=== PATIENT | male | born 1945 | race Caucasian/White ===

== ENCOUNTER 2018-06-07 10:44 | Outpatient (CLI) | payer MEDICARE, SELFPAY ==
[2018-06-10 10:02] LABS: PSA, Diagnostic 13.4 ng/ml (0-6.5)
== END 2018-06-07 11:04 ==
PROVIDERS: PCP Family Medicine; Visit Provider Urology
DX: R97.20 Elevated prostate specific antigen [PSA] (principal)
CPT/HCPCS: 84153

== ENCOUNTER → 2018-06-24 08:50 | Outpatient (BNVA) | payer MEDICARE, SELFPAY | PROVIDERS: PCP Family Medicine; Visit Provider Urology | DX: R97.20 Elevated prostate specific antigen [PSA] (principal); N40.0 Benign prostatic hyperplasia without lower urinary tract symptoms | CPT/HCPCS: 99213 ==

== ENCOUNTER 2018-09-30 00:55 | Outpatient (CLI) | payer MEDICARE, SELFPAY ==
--- NOTE | 2018-09-30 10:33 | DI.CTLCSR_ITS ---
SYMPTOMS/DIAGNOSIS: SMOKER, F17.200, F17.210 CT SCAN OF THE CHEST: CT scan of the chest was performed according to the lung cancer screening protocol. There are no priors for comparison. There is calcification of the thoracic aorta but no aneurysmal dilatation is seen. The heart size is within normal limits. No significant pericardial effusion is present. Calcification is seen in the coronary arteries. No significant thoracic adenopathy is seen on this noncontrast examination. No pleural effusion or pneumothorax is identified. Paraseptal emphysematous changes are seen in the lungs. No noncalcified pulmonary nodules are identified. No focal consolidating infiltrates are seen. The tracheobronchial tree is unremarkable. Degenerative changes are present in the spine. IMPRESSION: No pulmonary nodules. Lung-RAD Category: Lung RADS Category 1- Negative
== END 2018-09-30 01:15 ==
PROVIDERS: PCP Family Medicine; Visit Provider Family Medicine
DX: Z12.2 Encounter for screening for malignant neoplasm of respiratory organs (principal); F17.210 Nicotine dependence, cigarettes, uncomplicated
CPT/HCPCS: G0297

== ENCOUNTER 2018-12-12 01:22 | Outpatient (CLI) | payer MEDICARE, SELFPAY ==
[2018-12-13 10:39] LABS: PSA, Diagnostic 22.2 ng/ml (0-6.5)
== END 2018-12-12 01:42 ==
PROVIDERS: PCP Family Medicine; Visit Provider Urology
DX: R97.20 Elevated prostate specific antigen [PSA] (principal)
CPT/HCPCS: 36415; 84153

== ENCOUNTER → 2018-12-24 08:52 | Outpatient (BNVA) | payer MEDICARE, SELFPAY | PROVIDERS: PCP Family Medicine; Visit Provider Urology | DX: R97.20 Elevated prostate specific antigen [PSA] (principal); R19.4 Change in bowel habit | CPT/HCPCS: 99213 ==

== ENCOUNTER 2019-06-16 01:29 | Outpatient (CLI) | payer MEDICARE, SELFPAY ==
[2019-06-17 09:54] LABS: PSA, Diagnostic 18.9 ng/mL (0.0-6.5)
== END 2019-06-16 01:49 ==
PROVIDERS: PCP Family Medicine; Visit Provider Urology
DX: R97.20 Elevated prostate specific antigen [PSA] (principal)
CPT/HCPCS: 36415; 84153

== ENCOUNTER → 2019-06-27 08:57 | Outpatient (BNVA) | payer MEDICARE, SELFPAY | PROVIDERS: PCP Family Medicine; Referring Provider Family Medicine; Visit Provider Urology | DX: K64.9 Unspecified hemorrhoids (principal); R97.20 Elevated prostate specific antigen [PSA] | CPT/HCPCS: 99213 ==

== ENCOUNTER 2019-12-29 02:20 | Outpatient (CLI) | payer MEDICARE, SELFPAY ==
[2019-12-30 09:12] LABS: PSA, Diagnostic 22.8 ng/mL (0.0-6.5)
== END 2019-12-29 02:40 ==
PROVIDERS: PCP Family Medicine; Referring Provider Family Medicine; Visit Provider Urology
DX: R97.20 Elevated prostate specific antigen [PSA] (principal)
CPT/HCPCS: 36415; 84153

== ENCOUNTER → 2020-01-06 10:33 | Outpatient (BNVA) | payer MEDICARE, SELFPAY | PROVIDERS: PCP Family Medicine; Referring Provider Family Medicine; Visit Provider Urology | DX: R97.20 Elevated prostate specific antigen [PSA] (principal) | CPT/HCPCS: 99213 ==

== ENCOUNTER 2020-09-15 04:31 | Outpatient (CLI) | payer MEDICARE, SELFPAY ==
[2020-09-15 18:35] LABS: PSA, Diagnostic 31.9 ng/mL (0.0-6.5)
== END 2020-09-15 04:32 | disposition home or self-care (01) ==
PROVIDERS: PCP Family Medicine; Visit Provider Urology
DX: R97.20 Elevated prostate specific antigen [PSA] (principal)
CPT/HCPCS: 36415; 84153

== ENCOUNTER → 2020-09-23 08:53 | Outpatient (BNVA) | payer MEDICARE, SELFPAY | PROVIDERS: PCP Family Medicine; Visit Provider Nurse Practitioner Gerontology | DX: R97.20 Elevated prostate specific antigen [PSA] (principal); N40.0 Benign prostatic hyperplasia without lower urinary tract symptoms | CPT/HCPCS: 99213 ==

== ENCOUNTER 2020-10-21 16:55 | Outpatient (REF) | payer MEDICARE, SELFPAY ==
[2020-10-21 19:50] LABS: ALT 28 U/L (16-63); AST 21 U/L (15-37); Albumin 4.2 g/dL (3.4-5.0); Alkaline Phosphatase 71 U/L (46-116); BUN 28 mg/dL (7-18); Bilirubin, Total 0.5 mg/dL (0.2-1.0); CREATININE 1.1 mg/dL (0.70-1.30); Calcium 10.2 mg/dL (8.5-10.1); Chloride 99 mmol/L (98-107); Glucose 85 mg/dL (74-106); Potassium 3.7 mmol/L (3.5-5.1); Sodium 136 mmol/L (136-145); Total Protein 7.7 g/dL (6.4-8.2)
== END 2020-10-21 16:56 | disposition home or self-care (01) ==
LOC: NCHCN 16:55
PROVIDERS: PCP Family Medicine; Visit Provider Family Medicine
DX: I10 Essential (primary) hypertension (principal)
CPT/HCPCS: 80053

== ENCOUNTER 2021-03-18 03:21 | Outpatient (CLI) | payer MEDICARE, SELFPAY ==
[2021-03-18 22:21] LABS: PSA, Diagnostic 34.4 ng/mL (0.0-6.5)
== END 2021-03-18 03:22 | disposition home or self-care (01) ==
LOC: LBO 03:21
PROVIDERS: PCP Family Medicine; Visit Provider Nurse Practitioner Gerontology
DX: R97.20 Elevated prostate specific antigen [PSA] (principal)
CPT/HCPCS: 36415; 84153

== ENCOUNTER → 2021-03-24 09:55 | Outpatient (BNVA) | payer MEDICARE, SELFPAY | PROVIDERS: PCP Family Medicine; Referring Provider Family Medicine; Visit Provider Nurse Practitioner Gerontology | DX: R39.89 Other symptoms and signs involving the genitourinary system (principal); R97.20 Elevated prostate specific antigen [PSA] | CPT/HCPCS: 99213 ==

== ENCOUNTER 2021-09-14 02:50 | Outpatient (CLI) | payer MEDICARE, SELFPAY ==
[2021-09-14 22:54] LABS: PSA, Diagnostic 36.2 ng/mL (0.0-6.5)
== END 2021-09-14 02:51 | disposition home or self-care (01) ==
LOC: LBO 02:50
PROVIDERS: PCP Family Medicine; Visit Provider Nurse Practitioner Gerontology
DX: R97.20 Elevated prostate specific antigen [PSA] (principal)
CPT/HCPCS: 36415; 84153

== ENCOUNTER 2021-09-23 03:02 | Outpatient (CLI) | payer MEDICARE, SELFPAY ==
[2021-09-23 17:36] LABS: CREATININE 1.1 mg/dL (0.70-1.30)
== END 2021-09-23 03:03 | disposition home or self-care (01) ==
PROVIDERS: PCP Family Medicine; Visit Provider Nurse Practitioner Gerontology
DX: R97.20 Elevated prostate specific antigen [PSA] (principal)
CPT/HCPCS: 36415; 82565

== ENCOUNTER → 2021-10-04 02:27 | Outpatient (CLI) | payer MEDICARE, SELFPAY ==
--- NOTE | 2021-10-04 15:15 | DI.CTLCSR_ITS ---
Exam(s) CT CHEST LUNG CANCER SCREEN EXAM: CT CHEST LUNG CANCER SCREEN CLINICAL HISTORY: CIGARETTE SMOKER, F17.210 TECHNIQUE: Imaging Protocol: Axial computed tomography images with coronal and sagittal reformatted images were created and reviewed COMPARISON: CT CT CHEST LUNG CANCER SCREEN from 09/30/2018 FINDINGS: Tracheobronchial tree: Patent where visualized. Pulmonary parenchyma: No consolidation or dominant measurable mass. Emphysematous changes are present in the lungs. Mild pulmonary fibrosis is present. Lung Nodules: None. Mediastinum and Cait: No dominant adenopathy or fluid collection. The esophagus is unremarkable. Thyroid gland: Unremarkable. Lymph nodes: Unremarkable. Pleura: No effusion or pneumothorax. Heart: The heart is not dilated. Coronary artery calcifications are present. No pericardial effusion . Aorta: Thoracic aorta non-dilated.Atherosclerosis. Upper abdomen: Unremarkable. Soft Tissues: Unremarkable. Bones: Within normal limits. IMPRESSION: No pulmonary nodules. Lung RADS Cat 1 - Negative: No nodules and definitely benign nodules Lung-RADS 1.0 CATEGORIES: Category 0 - Prior chest CT exam(s) being located for comparison. Category 1 - Annual screening in 12 months. No nodules or definitely benign nodules. Category 2 - Annual screening in 12 months. Benign appearance. Nodules with low likelihood of becomin g active cancer. Category 3 - 6-month follow-up. Probably benign. Short-term follow-up suggested. Nodules with low lik elihood of becoming active cancer. Category 4A - 3-month follow-up and CT/PET if >8 mm in size. Suspicious finding. Findings which requi re additional testing. Category 4B - Findings which require additional testing and tissue sampling. Suspicious finding. Category 4X - Category 3 or 4 nodules with additional features or imaging findings that increases the suspicion of malignancy. Modifier S- Potentially clinically significant finding. (Non lung cancer) RADIATION DOSE DELIVERED: 77.01mGy.cm Total DLP !Error CTDIvol 77.01mGy.cm Total DLP 1.84mGy CTDIvol DATA REPOSITORY: All CT scans at this facility are submitted to the National Radiology Data Registry (NRDR) Dose Index Registry (DIR) with the [employer] (ACR). RADIATION OPTIMIZATION: All CT scans at this facility use at least one of these dose optimization te chniques: automated exposure control; mA and/or kV adjustment per patient size (includes targeted exa ms where dose is matched to clinical indication); or iterative reconstruction.
== END ==
PROVIDERS: PCP Family Medicine; Visit Provider Nurse Practitioner Family
DX: Z12.2 Encounter for screening for malignant neoplasm of respiratory organs (principal); F17.210 Nicotine dependence, cigarettes, uncomplicated; J43.8 Other emphysema; J84.10 Pulmonary fibrosis, unspecified
CPT/HCPCS: 71271

== ENCOUNTER → 2021-11-08 08:47 | Outpatient (BNVA) | payer MEDICARE, SELFPAY | PROVIDERS: PCP Family Medicine; Referring Provider Family Medicine; Visit Provider Nurse Practitioner Gerontology | DX: R97.20 Elevated prostate specific antigen [PSA] (principal); N40.0 Benign prostatic hyperplasia without lower urinary tract symptoms | CPT/HCPCS: 99214 ==

== ENCOUNTER 2022-03-07 03:50 | Outpatient (CLI) | payer MEDICARE, SELFPAY ==
[2022-03-07 18:14] LABS: PSA, Diagnostic 46.9 ng/mL (<=6.5)
== END 2022-03-07 03:51 | disposition home or self-care (01) ==
LOC: LBO 03:50
PROVIDERS: PCP Family Medicine; Visit Provider Nurse Practitioner Gerontology
DX: R97.20 Elevated prostate specific antigen [PSA] (principal)
CPT/HCPCS: 36415; 84153

== ENCOUNTER → 2022-03-14 09:56 | Outpatient (BNVA) | payer MEDICARE, SELFPAY | PROVIDERS: PCP Family Medicine; Referring Provider Family Medicine; Visit Provider Nurse Practitioner Gerontology | DX: R97.20 Elevated prostate specific antigen [PSA] (principal) | CPT/HCPCS: 99214 ==

== ENCOUNTER → 2022-05-31 02:56 | Outpatient (CLI) | payer MEDICARE, SELFPAY ==
--- NOTE | 2022-05-31 | DI.DEXA_ITS ---
Exam(s) XR DEXA BONE DENSITY W/WO MERLE EXAM: XR DEXA BONE DENSITY W/WO MERLE CLINICAL HISTORY: DISORDER BONE DENSITY AND STRUCTURE, M85.88 TECHNIQUE: COMPARISON: CT CT CHEST LUNG CANCER SCREEN from 10/04/2021 FINDINGS: DEXA scan was performed according to the usual protocol. Please see the accompanying data sheets. Findings for left hip scanning are T-score -1.6 with left femoral neck T-score -2.5. Prior examinati on of October 2016 showed left hip T-score -1.5. Findings for lumbar spine scanning are T-score 1.2, prior examination of 2016 showed lumbar T-score - 1.5. Right forearm scanning shows T-score -2.8, prior examination of 2016 showed T-score -2.2. IMPRESSION: Measurements are consistent with osteoporosis according to the WHO criteria. There may be minimal an terior wedging of multiple thoracic vertebral bodies probably unchanged from prior CT examination of September 2021. RADIATION DOSE DELIVERED: Total DLP
== END ==
PROVIDERS: PCP Family Medicine; Visit Provider Family Medicine
DX: M81.0 Age-related osteoporosis without current pathological fracture (principal); M85.88 Other specified disorders of bone density and structure, other site
CPT/HCPCS: 77080

== ENCOUNTER → 2022-07-03 12:51 | Outpatient (BNVA) | payer MEDICARE, SELFPAY | PROVIDERS: PCP Family Medicine; Referring Provider Family Medicine; Visit Provider Internal Medicine Cardiovascular Disease | DX: I10 Essential (primary) hypertension (principal); F17.210 Nicotine dependence, cigarettes, uncomplicated | CPT/HCPCS: 93005; 99202; 99214 ==

== ENCOUNTER 2022-07-03 12:52 | Outpatient (CLI) | payer MEDICARE, SELFPAY ==
--- NOTE | 2022-07-03 12:45 | RT.EKG_ITS ---
APPROVED REPORT Exam: Resting ECG Reason for Exam: cardiac evaluation Patient Location: O HR:67 bpm ECG Measurements Heart Rate 67 AXIS SC 173 P 23 QRSd 107 QRS -32 QT 390 T 104 QTc 412 Conclusion Sinus rhythm...normal P axis, V-rate 50- 99 LVH with secondary repolarization abnormality...multi-LVH criteria, abnrm ST-T Left anterior fascicular block
== END 2022-07-03 12:53 | disposition home or self-care (01) ==
LOC: DI.CARD 12:53
PROVIDERS: PCP Family Medicine; Visit Provider Internal Medicine Cardiovascular Disease
DX: I10 Essential (primary) hypertension (principal); R94.31 Abnormal electrocardiogram [ECG] [EKG]; I44.4 Left anterior fascicular block
CPT/HCPCS: 93010

== ENCOUNTER 2022-09-06 02:52 | Outpatient (CLI) | payer MEDICARE, SELFPAY ==
[2022-09-06 08:42] LABS: ALT 30 U/L (16-63); AST 22 U/L (15-37); Albumin 3.8 g/dL (3.4-5.0); Alkaline Phosphatase 76 U/L (46-116); Anion Gap 7.2 mmol/L (3-11); BUN 29 mg/dL (7-18); CO2 29.8 mmol/L (21.0-32.0); CREATININE 1.3 mg/dL (0.70-1.30); Calcium 9.7 mg/dL (8.5-10.1); Chloride 90 mmol/L (98-107); Estimated GFR 56.93 (mL/min/1.73m2); Glucose 105 mg/dL (74-106); Potassium 3.7 mmol/L (3.5-5.1); Sodium 127 mmol/L (136-145); Total Protein 7.6 g/dL (6.4-8.2)
[2022-09-06 18:00] LABS: PSA, Diagnostic 50.7 ng/mL (<=6.5)
== END 2022-09-06 02:53 | disposition home or self-care (01) ==
LOC: LBO 02:52
PROVIDERS: PCP Family Medicine; Visit Provider Nurse Practitioner Gerontology
DX: R97.20 Elevated prostate specific antigen [PSA] (principal); I10 Essential (primary) hypertension
CPT/HCPCS: 36415; 80053; 84153

== ENCOUNTER → 2022-09-12 10:24 | Outpatient (BNVA) | payer MEDICARE, SELFPAY | PROVIDERS: PCP Family Medicine; Visit Provider Nurse Practitioner Gerontology | DX: R97.20 Elevated prostate specific antigen [PSA] (principal); I10 Essential (primary) hypertension | CPT/HCPCS: 99214 ==

== ENCOUNTER 2022-09-26 03:03 | Outpatient (CLI) | payer MEDICARE, SELFPAY ==
[2022-09-26 08:56] LABS: Anion Gap 7.8 mmol/L (3-11); BUN 23 mg/dL (7-18); CO2 27.2 mmol/L (21.0-32.0); CREATININE 1.2 mg/dL (0.70-1.30); Calcium 9.9 mg/dL (8.5-10.1); Chloride 99 mmol/L (98-107); Estimated GFR 62.29 (mL/min/1.73m2); Glucose 127 mg/dL (74-106); Potassium 3.9 mmol/L (3.5-5.1); Sodium 134 mmol/L (136-145)
== END 2022-09-26 03:04 | disposition home or self-care (01) ==
PROVIDERS: PCP Family Medicine; Visit Provider Nurse Practitioner Gerontology
DX: I10 Essential (primary) hypertension (principal); E87.1 Hypo-osmolality and hyponatremia
CPT/HCPCS: 36415; 80048; 84153

== ENCOUNTER → 2023-01-11 11:18 | Outpatient (BNVA) | payer MEDICARE, SELFPAY | PROVIDERS: PCP Family Medicine; Referring Provider Family Medicine; Visit Provider Physical Therapy Assistant | DX: Z12.11 Encounter for screening for malignant neoplasm of colon (principal); Z80.0 Family history of malignant neoplasm of digestive organs ==

== ENCOUNTER 2023-01-18 07:57 | Day surgery (SDC) | payer MEDICARE, SELFPAY ==
--- NOTE | 2023-01-17 22:24 | COLE_ITS ---
Date of service: 01/18/23 Time of Service: 09:30 Colonoscopy Report Date of procedure: 01/18/23 Pre-op diagnosis general: X2 second-degree family members with colorectal cancer Post-op diagnosis procedure note: other (Severe gardner diverticular disease/in ternal and external hemorrhoids) Surgeon: Kelly Salguero Anesthesia Type: General:No Airway Estimated blood loss (mL): 0 Pathology: none sent Complications: None Disposition: PACU Prep: Miralax/Dulcolax Retraction Time: 10 mins Procedure Description: After informed consent was obtained the patient was taken to the procedure room and placed in a left decubitous position. Monitors were applied and a time out was done. The patients name, date of , procedure, allergies to medications and metal in their body was reviewed. The patient was then sedated. Once sedat ed and comfortable a rectal exam was done. External exam reveals a large external hemorrhoid at the 12 o'clock position with some mucosal prolapse. The prostate normal. the scope was then introduced and retrofelexed. He has grade 2 in all 3 columns internal hemorrhoids as well as, hemorrhoidal tags, were identified. The scope was then advanced to the cecum w/out difficulty. The TI and appendiceal orifice were identified. The prep was BBPS 3 in all segments for total of 9. The scope was then slowly retracted over 10 minuties. no polyps were visualized today. He has severe diverticula that are [place] and numerous and do extend all the way over to the cecum. There is no signs of active bleeding or infection. The scope was removed and the patient was woken up and taken back to Same day surgery in stable condition. The patient tolerated the procedure well and there were no immediate complications. Follow up: The patient should follow up in 5 years unless they develop changes in bowel habits or other new gastrointestinal complaints; provided he is still healthy for anesthesia.
--- NOTE | 2023-01-18 07:37 | PDOC.DSDIS_ITS ---
Date of service: 01/18/23 Time of Service: 09:58 Discharge Plan Disposition Patient Disposition: Home Discharge Details Attending Provider: Kelly Salguero Primary Care Provider: Yamini Brand V Home Meds and New Rx's Prescriptions: No Action bisacodyl [Dulcolax (bisacodyl)] 5 mg tablet,delayed release (DR/EC) 5 mg PO ONCE Qty: 4 0RF Rx Instructions: Take per colonoscopy instructions provided by ordering providers office polyethylene glycol 3350 17 gram/dose powder 17 g PO ONCE Qty: 238 0RF Rx Instructions: Take per colonoscopy instructions provided by ordering providers office desoximetasone [Topicort] 60 GM cream 60 gm Topical DAILY PRN PRN atenolol 25 MG tablet 50 mg PO BID cholecalciferol (vitamin D3) 25 mcg (1,000 unit) capsule 25 mcg PO DAILY chlorthalidone 25 mg tablet 25 mg PO DAILY losartan 25 mg tablet 50 mg PO BID alendronate [Fosamax] 70 mg tablet 70 mg PO DIRECTED Patient Comments: Take 1 tablet by mouth once a week on empty stomach w/ full glass water. Stay upright for 30 min after. multivitamin 1 EACH capsule 1 tab PO DAILY Discharge Instructions Additional Instructions: DSU Colonoscopy Post- Op Instructions Instructions for Everyone who is given Anesthesia: For your safety, please do the following for the next twenty-four (24) hours: *Do Not operate a motor vehicle (car, truck, motorcycle, etc.) *Do Not drink alcoholic beverages or use any recreational drugs for the first 24 hours or while taking pain medications. The medications in your body may have a reaction that can be dangerous. *Do Not make any important decisions or sign any important papers. Findings: Severe diverticular Dx. Internal and external hemorrhoids -Make sure you are moving your bowels on a regular basis and you are not straining to go to the bathroom. Use psyllium husk's daily. Follow up: Repeat colonoscopy in 5 years time 1. No lifting over 20 pounds or strenuous activity for the first 24 hours after your procedure. After 24 hours there are no restrictions on your activity but you may feel fatigued for a few days. 2. After you arrive home you may have a light meal and return to your normal diet as you can tolerate it without feeling sick to your stomach. 3. You may have a bloated, gaseous feeling in your belly (abdomen) after a colonoscopy. Passing gas and belching will help. Walking or lying down on your left side with your knees flexed may relieve the discomfort. Call the office at [phone] (Office) or [phone] (Hospital) right away if you notice any of the following: a.Vomiting of blood or ?coffee ground stools?. b.Rectal bleeding 1Tbsp, blood clots or continuous bleeding. c.Severe belly (abdominal) pain. d.A hard distended belly (abdomen) and an inability to pass gas. 4. Please don?t expect to have a normal BM (bowel movement) for 2-3 days after your procedure. 5. If there are questions regarding the findings of your procedure, please contact your doctor 6. If you are unable to contact your doctor with a problem, contact the hospital at [phone]. 7. Continue all your regular medications unless directed otherwise. I understand the above instructions and have no questions. Signature of Patient or Adult Escort Name of Responsible Adult Escort Signature of Nurse Date/Time Activity:: See above Diet:: See above Discharge Orders Discharge Orders: Discharge Order (Routine); Ordered 01/18/23 Ordered By: Kelly Salguero DS: Diagnosis Discharge Diagnosis (1) Diverticular disease of large intestine: Status: Acute (2) Internal hemorrhoids without complication: Status: Acute (3) External hemorrhoids without complication: Status: Acute
[2023-01-18 08:05] VITALS: BP 167/104; PULSE 54; RESP 16; TEMP 36.5; O2SAT 99
[2023-01-18] MEDS: Lactated Ringers 1,000 ML 80 ML IV (08:45)
--- NOTE | 2023-01-18 08:50 | W.ANESPRE ---
General Info Date of Service Date Performed: 01/18/23 Height: 5 ft 5 in Weight: 61.3 kg Body Mass Index (BMI): 22.4 Surgical Procedure: Operation Date: 01/18/23 09:20 Proposed Procedure Side Surgeon abbie Salguero, DO Meds Allergies and Home Medications Allergies Allergy/AdvReac Type Severity Reaction Status Date / Time varenicline tartrate Allergy Verified 01/18/23 08:24 [From Chantix] Home Medication Medication Instructions Recorded atenolol 25 mg tablet 50 mg PO BID 05/02/16 desoximetasone 0.05 % topical 60 gm topical DAILY PRN PRN 05/02/16 cream (Topicort) multivitamin 1 tab PO DAILY 01/22/17 cholecalciferol (vitamin D3) 25 25 mcg PO DAILY 05/22/22 mcg (1,000 unit) capsule chlorthalidone 25 mg tablet 25 mg PO DAILY 05/24/22 losartan 25 mg tablet 50 mg PO BID 07/03/22 bisacodyl 5 mg tablet,delayed 5 mg PO ONCE #4 tabs 01/11/23 release (Dulcolax (bisacodyl)) polyethylene glycol 3350 17 17 g PO ONCE #238 grams 01/11/23 gram/dose oral powder alendronate 70 mg tablet (Fosamax) 70 mg PO DIRECTED 01/18/23 Current Visit Medications: Current Medications Generic Name Dose Route Start Last Admin Trade Name Freq PRN Reason Stop Dose Admin Hyoscyamine Sulfate 0.125 mg 01/17/23 08:20 Hyoscyamine 0.125 Mg Sl/Oral/Chew SL 02/16/23 08:19 DIRECTED PRN Ringer's Solution 1,000 mls @ 80 mls/hr 01/18/23 06:00 01/18/23 08:45 IV 02/16/23 23:59 80 mls/hr INFUSION YVETTE Administration IV Miscellaneous Supplies 1 each 01/18/23 06:00 Iv Access IV 02/16/23 23:59 DIRECTED YVETTE Ondansetron HCl 4 mg 01/17/23 22:20 Ondansetron 4 Mg/2 Ml Vial IVP 02/16/23 22:19 Q4H PRN PRN Nausea / Vomiting Sodium Chloride 0 ml 01/18/23 06:00 Normal Saline Flush 10 Ml Syr IV 02/16/23 23:59 PRN PRN Sodium Chloride 0 ml 01/18/23 06:00 Normal Saline 10 Ml Vial IJ 02/16/23 23:59 DIRECTED PRN Sterile Water 0 ml 01/18/23 06:00 Water,Injection,Sterile 10 Ml Vial IJ 02/16/23 23:59 DIRECTED PRN PFSH Active Problems Active Problems: Problem Status Onset Code Family history of colon cancer Z80.0 Smoker F17.200 Hypertension I10 Eczema L30.9 Osteopenia M85.80 Screening for colon cancer Z12.11 Elevated PSA measurement 05/02/16 R97.20 Medical History Medical History Adenomatous colon polyp Left inguinal hernia Onychomycosis Rash Sebaceous cyst Surgical History Surgical History Colonoscopy - MAC (12/06/16) Repair of inguinal hernia (01/23/17) left Tobacco Smoking/Tobacco Use Status: Current every day Tobacco Type: cigarettes Alcohol Alcohol Intake: current Alcohol intake frequency: 3 or more drinks per day Alcohol type: hard liquor Substance Use Substance use: Socially Substance use type: marijuana Vital Signs and Lab Results Vital Signs Most Recent Vital Signs in EMR: Most Recent Vital Signs Temp Pulse Resp BP Pulse Ox 36.5 C 54 L 16 167/104 H 99 01/18/23 08:05 01/18/23 08:05 01/18/23 08:05 01/18/23 08:05 01/18/23 08:05 Lab Results Blood Type / Crossmatch: No Data to Display Complete Blood Count: No Data to Display Complete Metabolic Panel: No Data to Display Liver Function Panel: No Data to Display Coagulation Panel: No Data to Display Cardiac Panel: No Data to Display Arterial Blood Gas: No Data to Display Venous Blood Gas: No Data to Display Pancreas Panel: No Data to Display Thyroid Panel: No Data to Display Infectious Disease: No Data to Display Blood Cultures: No Data to Display Toxicology Panel: No Data to Display Imaging and Studies Imaging and Studies Study information below may be from another EMR and interpreted by another provider. Please see original notes in EMR for more complete details. EKG Summary: 07/17: sinus, LVH, LAFB. Anesthesia Assessment and Plan Anesthesia History Personal History: No History of Anesthesia Complications Family History: No Family History of Anesthesia Complications Exercise Tolerance Exercise Tolerance: Metabolic Equivalents>4 Cardiac & Pulmonary Exam Cardiac Exam: Normal S1/S2 Heart Sounds Pulmonary Exam: Clear Bilateral Breath Sounds Implantable Cardiac Device Does patient have a Pacemaker or an ICD?: No Airway Exam Known Difficult Airway: No Mallampati Class: 2 Mouth Opening: Normal (> 3cm) Thyromental Distance: Greater than 3 cm Neck Range of Motion: Full ROM Neck Circumference: Normal Teeth Condition: Normal Dentition and Removable Dentures/Plates Upper ASA Classification ASA Score: ASA 2 Emergency Case?: No NPO Status NPO Status: NPO Clears >2 hours, Solids >8 hours Anesthesia Plan Resuscitation Status: Full Code Anesthesia Technique: General Anesthesia Airway Planned: Natural Airway Monitors Used: Standard Monitors Preoperative Comments:: 77 yo male for colo. Sig PMHx: HTN (atenolol, chlorthalidone, losartan), smoker, daily EtOH, occ cannabis. Previous Anes: - colo, fent/midaz, prop, natural airway, no issues. - hernia, prop/ketamine, natural airway, no issues.
[2023-01-18 08:55] VITALS: BMI 22.4
[2023-01-18 09:53] VITALS: BP 130/87; PULSE 51; RESP 16; TEMP 36.5; O2SAT 100
--- NOTE | 2023-01-18 10:04 | W.ANESPOSTOP ---
Postoperative Evaluation Date, Time and Location Date Performed: 01/18/23 Time Performed: 10:04 Patient Location: Day Surgery Unit Vital Signs Most Recent Imported Vital Signs: Most Recent Vital Signs Temp Pulse Resp BP Pulse Ox 36.5 C 51 L 16 130/87 100 01/18/23 09:53 01/18/23 09:53 01/18/23 09:53 01/18/23 09:53 01/18/23 09:53 Pain Score Most Recent Pain Score: Most Recent Pain Score Pain Level 0 01/18/23 09:53 Assessment Mental Status: Awake (Alert & Oriented to Patient Baseline) Airway and Respiratory Function: Patent airway with normal (patient baseline) respiratory exam Cardiovascular Function: Hemodynamically Stable Hydration Status: Adequately Hydrated Nausea & Vomiting: No Nausea or Vomiting Pain: Pt. Denies Any Pain Peripheral Nerve Block: Patient did not receive a nerve block
[2023-01-18 10:23] VITALS: BP 159/74; PULSE 50; RESP 18; TEMP 36.6; O2SAT 98
== END 2023-01-18 10:40 | disposition home or self-care (01) ==
PROVIDERS: PCP Family Medicine; Visit Provider Surgery
PROC: 0DJD8ZZ Inspection of Lower Intestinal Tract, Via Natural or Artificial Opening Endoscopic (ICD-10-PCS; CPT 45378; principal; 2023-01-18 09:15)
DX: Z12.11 Encounter for screening for malignant neoplasm of colon (principal); Z80.0 Family history of malignant neoplasm of digestive organs; K57.30 Diverticulosis of large intestine without perforation or abscess without bleeding; K64.4 Residual hemorrhoidal skin tags; K64.1 Second degree hemorrhoids
CPT/HCPCS: G0105; J2001

== ENCOUNTER 2023-03-13 03:29 | Outpatient (CLI) | payer MEDICARE, SELFPAY ==
[2023-03-13 20:00] LABS: PSA, Diagnostic 62.4 ng/mL (<=6.5)
== END 2023-03-13 03:30 | disposition home or self-care (01) ==
PROVIDERS: Nurse Practitioner Gerontology; PCP Family Medicine; Visit Provider Family Medicine
DX: R97.20 Elevated prostate specific antigen [PSA] (principal)
CPT/HCPCS: 36415; 80053; 80061; 82306; 82977; 84153

== ENCOUNTER → 2023-03-20 09:50 | Outpatient (BNVA) | payer MEDICARE, SELFPAY | PROVIDERS: PCP Family Medicine; Visit Provider Nurse Practitioner Gerontology | DX: R97.20 Elevated prostate specific antigen [PSA] (principal); I10 Essential (primary) hypertension | CPT/HCPCS: 51798; 99213 ==

== ENCOUNTER → 2023-04-19 03:21 | Outpatient (CLI) | payer MEDICARE, SELFPAY ==
--- NOTE | 2023-04-19 | DI.US_ITS ---
APPROVED REPORT EXAM: Comprehensive 2D, Doppler, and color-flow Echocardiogram Patient Location: Out-Patient Lubricating Engineer: Partha Thomas RDCS (AE) Indications: HTN, hypertrophy or dilatation of left ventricle Conclusion Normal left ventricular wall thickness and chamber size. Ejection fraction is 55%. Wall motion is n ormal Normal right ventricular size and systolic function Left atrium is mildly dilated. Right atrial size is normal Aortic valve is sclerotic and probably trileaflet without stenosis or regurgitation Normal tricuspid valve with mild to moderate regurgitation. Estimated right ventricular systolic pre ssure is 29 mmHg Dilated aortic root Wall motion Left Ventricle The left ventricle is normal size. Left ventricular systolic function is normal There is normal left ventricular wall thickness. There are no segmental wall motion abnormalities There is no ventricular septal defect visualized. LVEF is 555%. Right Ventricle The right ventricle is normal size. The right ventricular systolic function is normal. The RVSP is 29 .0 mmHg. Atria Left atrium is mildly dilated. The right atrium size is normal. The interatrial septum is intact with no evidence for an atrial septal defect. Aortic Valve The Aortic valve is sclerotic. Aortic valve is probably trileaflet. There is no aortic valvular steno sis. No aortic regurgitation is present. Mitral Valve The mitral valve is normal in structure. No evidence of mitral valve stenosis. Trace mitral regurgita tion. Tricuspid Valve The tricuspid valve is normal in structure. There is no tricuspid valve stenosis. Mild to moderate tr icuspid regurgitation. Pulmonic Valve The pulmonary valve is normal in structure. There is no pulmonic valvular stenosis. There is no pulmo kareem valvular regurgitation. Great Vessels Aortic root is moderately dilated. The ascending aorta is normal in size. Aortic arch is not well vis ualized. IVC is normal in size and collapses >50% with inspiration. Pericardium There is no pericardial effusion. 2D Dimensions IVSD d PLAX 0.81 cm M: 0.6-1.2 Ao Root d 4.09 cm M: 3.1 - 3.7 LVPW d PLAX 0.80 cm M: 0.6 - 1.2 Ao Asc Diam d 3.32 cm M: 2.6 - 3.4 LVID d PLAX 4.57 cm M: 4.2 - 5.8 LVDs 3.33 cm M: 2.5 - 4.0 LV EF Teichholz 53.1 % FS 27.23 % LV EDV (Teich) 96.0 mL LV ESV (Teich) 45.0 mL Stroke Vol Index (Teich) 30.88 Auto EF LV EDV A4C 91.9 mL LV EDV A2C 115.3 mL LV EDV BP 105.0 mL LV ESV A4C 42.3 mL LV ESV A2C 58.2 mL LV ESV BP 51.5 mL LVEF(%) A4C 53.9 % LVEF(%) A2C 49.5 % LVEF(%) BP 50.9 % LV SV A4C 49.6 ml LV SV A2C 57.1 ml LV SV BP 53.5 ml LV CO A4C 2.3 L/min LV CO A2C 3.1 L/min LV CO BP 2.7 L/min HR A4C 46.63 BPM HR A2C 53.89 BPM LV EDV Index (BP) LA Volume LA Length A4C 5.0 cm LA Length A2C LA Area A4C s 16.35 cm2 LA Area A2C s LA Vol A4C A-L 45.30 mL LA Vol A2C A-L LA Vol Biplane A-L LA Vol A4C MOD 44.0 mL LA Vol A2C MOD LA Vol BP MOD RA Volume RA Area A4C 8.1 cm2 RA ESV A4C (A-L) 12.8mL RA Vol/BSA A4C A-L RA Length A4C 4.4 cm RA ESV A4C (MOD) 12.7mL LV Diastology MV E' medial 0.036 (>0.07 m/s) MV E Vmax 0.63 (0.4-1.3 m/s) MV E/E' MED 17.77 (<14) MV A Vmax 1.00 (0.4-1.3 m/s) MV E' lateral 0.055 (>0.1 m/s) E/A Ratio 0.6 MV E/E' LAT 11.40 (<14) MV E' Average 0.045 m/s MV E/E'(average) 13.89 Aortic Valve AoV Vmax 1.86 m/s LVOT Vmax 0.76 m/s AoV Peak Grad 13.8 mmHg LVOT Peak Grad 2.3 mmHg AoV Area (Vmax) 1.16 cm2 LVOT VTI 0.203 m AoV VTI 0.450 m LVOT Mean Grad 1.2 mmHg AoV Mean Abhishek. 1.25 m/s LVOT SV 57.30 mL AoV Mean Grad 7.3 mmHg LVOT Diam s 1.85 cm AoV Area (VTI) 1.27 cm2 Velocity Ratio 0.41 Mitral Valve MV DT 295 (160-240 msec) Pulmonary Valve PV Vmax 0.86 (0.5-1.5 m/s) RVOT Vmax 0.55 m/s PV Peak Grad 3.0 mmHg RVOT Peak Gr. 1.2 mmHg PV Mean Abhishek 0.63 m/s RVOT VTI 0.080 m PV Mean Grad 1.7 mmHg RVOT Mean Gr. 0.4 mmHg Tricuspid Valve RA Pressure 3.00 mmHg TR Vmax 2.55 m/s TR Peak Grad 26.0 mmHg RVSP (TR) 29.0 mmHg
== END ==
PROVIDERS: PCP Family Medicine; Visit Provider Family Medicine
DX: I10 Essential (primary) hypertension (principal)
CPT/HCPCS: 93306

== ENCOUNTER 2023-07-08 12:23 | Emergency (ER) | payer MEDICARE, SELFPAY ==
[2023-07-08 12:35] VITALS: BP 125/75; PULSE 69; RESP 16; TEMP 36.6; O2SAT 99
[2023-07-08 13:52] VITALS: BP 160/97; PULSE 58
--- NOTE | 2023-07-08 14:05 | ED.GENADUL_ITS ---
HPI General Stated Complaint: RX Refill Mode of arrival: ambulatory. JACKIE: 5 Date/Time Provider Initiated Documentation: 07/08/23 13:55. Limitations to Documentation: no limitations. Information obtained by: patient. History of Present Illness out of losartan day(s) (4) No relieving factors improve symptom(s), No exacerbating factors reported no other symptoms. Related Data Home Medications Medication Instructions Recorded Confirmed atenolol 25 mg tablet 50 mg PO BID 05/02/16 07/08/23 desoximetasone 0.05 % topical 60 gm topical DAILY PRN PRN 05/02/16 07/08/23 cream (Topicort) multivitamin 1 tab PO DAILY 01/22/17 07/08/23 losartan 25 mg tablet 50 mg PO BID 07/03/22 07/08/23 alendronate 70 mg tablet (Fosamax) 70 mg PO DIRECTED 01/18/23 07/08/23 cholecalciferol (vitamin D3) 25 50 mcg PO DAILY 03/20/23 07/08/23 mcg (1,000 unit) capsule amlodipine 5 mg tablet 5 mg PO DAILY 07/08/23 07/08/23 losartan 50 mg tablet 50 mg PO BID #8 tabs 07/08/23 terbinafine HCl 250 mg tablet 250 mg PO DAILY 07/08/23 07/08/23 Previous Rx's Medication Instructions Recorded losartan 50 mg tablet 50 mg PO BID #8 tabs 07/08/23 Allergies Allergy/AdvReac Type Severity Reaction Status Date / Time varenicline tartrate Allergy Verified 07/08/23 12:38 [From Chantix] Review of Systems All systems reviewed & are unremarkable except as noted in HPI and below Constitutional Constitutional: Denies chills, Denies fever(s) and Denies weakness Cardiovascular Cardiovascular: Denies chest pain and Denies dyspnea Respiratory Respiratory: Denies cough and Denies dyspnea Gastrointestinal Gastrointestinal: Denies abdominal pain, Denies nausea and Denies vomiting Musculoskeletal Musculoskeletal: Denies joint swelling Neurologic Neurologic: Denies weakness PFSH All Active Problems (Updated 07/08/23 @ 14:08 by Reece Cali MD) External hemorrhoids without complication (Acute) Internal hemorrhoids without complication (Acute) Diverticular disease of large intestine (Acute) Severe. Pandiverticulosis. Family history of colon cancer (Acute) Smoker (Acute) Hypertension (Chronic) Eczema (Acute) Osteopenia (Acute) Screening for colon cancer (Acute) Elevated PSA measurement (Acute 05/02/16) Medical History (Updated 07/08/23 @ 14:08 by Reece Cali MD) Adenomatous colon polyp Left inguinal hernia Sebaceous cyst Rash Onychomycosis Surgical History (Updated 01/19/23 @ 07:38 by Keena Chavez) Repair of inguinal hernia (01/23/17) left Colonoscopy - [facility] (12/2022) 12/09 Family History Maternal Aunt Colon cancer Maternal Aunt Colon cancer Social History (Updated 01/12/23 @ 07:15 by UMESH Prado) Smoking/Tobacco Use Status: Current every day Tobacco Type: cigarettes Smoking risk assessment performed?: Yes Alcohol Intake: current Alcohol Intake frequency: 3 or more drinks per day Alcohol type: hard liquor Drug use: Socially Substance use type: marijuana Housing: house Do you feel safe at home: Yes Do you feel safe in your relationship?: Yes PAWSS Have you Been Recently Intoxicated or Drunk Within the Last 30 days?: Yes Have you Ever Experienced Previous Episodes of Alcohol Withdrawal?: Yes Have you ever Experienced Withdrawal Seizures?: No Have you ever Experienced Delirium Tremens(DT)s?: No Have you ever undergone Alcohol Rehabilitation Treatment (i.e, inpt ot outpatient treatment programs)?: No Have you ever Experienced Blackouts?: Yes Have you ever Combined Alcohol with other Downers within the last 90 days?: No Have you ever Combined Alcohol with any other Substance of Abuse during the last 90 days?: Yes Positive Blood Alcohol level on Presentation? [PCS.BAL]: No Evidence of Increased Autonomic Activity (i.e. HR>120, tremor, sweating, agita tion, nausea)?: No Result: 5 Exam Const General: no acute distress Orientation: alert HENMT Head: normal to inspection Ears: external ears normal General nose exam: external nose normal Mouth: moist mucous membranes Eyes General: appearance normal, both eyes and all related structures Neck Neck: normal visual inspection Resp Effort & Inspection: normal respiratory effort and able to speak in complete sentences Cardio Rate: regular rate Skin General skin exam: no rashes or lesions noted Neuro General: patient alert and patient oriented x3 Extrem General: normal to inspection Psych Mental Status: mental status grossly normal Course Vital Signs Vital signs: Vital Signs Temperature 36.6 C 07/08/23 12:35 Pulse 69 07/08/23 12:35 Respiratory Rate 16 07/08/23 12:35 Blood Pressure 125/75 07/08/23 12:35 Pulse Oximetry 99 07/08/23 12:35 Temperature 36.6 C 07/08/23 12:35 Pulse 58 L 07/08/23 13:52 Respiratory Rate 16 07/08/23 12:35 Respiratory Effort Normal, Non-Labored 07/08/23 13:45 Blood Pressure 160/97 H 07/08/23 13:52 Pulse Oximetry 99 07/08/23 12:35 Medical Decision Making 77 yo male with hx of htn presents requesting a bridge of his losartan. HE states there was a shipping issue with his pharmacy and wont get his next shipment until Sunday. HE has no symptoms, no chest pain, no dyspnea, caox4 speaking clearly and appears well. Will give him a dose of his losartan and short bridge supply sent to [facility] at his request, return precautions given and advised to f/u with his pcp. Given no symptoms do not feel any testing indicated at this time Differential Diagnosis Differential Diagnosis: essential hypertension Quality:SDOH Health Related Social Needs: No Data to Display Discharge Plan Disposition Patient Disposition: Home Condition: Stable Discharge Details Clinical Impression: Hypertension Primary Care Provider: Yamini Brand V ED Provider: Reece Cali Home Meds and New Rx's Prescriptions: New losartan 50 mg tablet 50 mg PO BID Qty: 8 0RF Continued desoximetasone [Topicort] 60 GM cream 60 gm Topical DAILY PRN PRN atenolol 25 MG tablet 50 mg PO BID losartan 25 mg tablet 50 mg PO BID cholecalciferol (vitamin D3) 25 mcg (1,000 unit) capsule 50 mcg PO DAILY alendronate [Fosamax] 70 mg tablet 70 mg PO DIRECTED Patient Comments: Take 1 tablet by mouth once a week on empty stomach w/ full glass water. S julian upright for 30 min after. multivitamin 1 EACH capsule 1 tab PO DAILY amlodipine 5 mg tablet 5 mg PO DAILY Patient Comments: 2 tablet by mouth once a day terbinafine HCl 250 mg tablet 250 mg PO DAILY Patient Comments: Take 1 tablet by mouth once a day Take daily for 3 months for toenail fungus - do not drink alcohol while taking this medicine Discharge Instructions Additional Instructions: follow up with your primary care provider as needed IF you feel more ill or have new symptoms such as severe chest pain or difficulty breathing return to the emergency department
[2023-07-08 14:14] VITALS: BP 162/92; PULSE 64
[2023-07-08] MEDS: Losartan 50 MG TAB PO (14:15)
== END 2023-07-08 14:25 | disposition home or self-care (01) ==
PROVIDERS: Emergency Provider Emergency Medicine; PCP Family Medicine
DX: I10 Essential (primary) hypertension (principal); F17.200 Nicotine dependence, unspecified, uncomplicated; F12.10 Cannabis abuse, uncomplicated; F10.10 Alcohol abuse, uncomplicated; Z76.0 Encounter for issue of repeat prescription
CPT/HCPCS: 99283

== ENCOUNTER → 2023-08-14 04:35 | Outpatient (CLI) | payer MEDICARE, SELFPAY ==
--- NOTE | 2023-08-14 15:42 | DI.CTLCSR_ITS ---
Exam(s) CT CHEST LUNG CANCER SCREEN EXAM: CT CHEST LUNG CANCER SCREEN CLINICAL HISTORY: SCREENING FOR LUNG CA,CURRENT SMOKER,F17.210. TECHNIQUE: Imaging Protocol: Low Dose Technique CONTRAST MATERIAL: None COMPARISON: CT CT CHEST LUNG CANCER SCREEN from 10/04/2021 FINDINGS: CHEST: LUNGS: There is an element of pulmonary fibrosis again noted which appears stable-unchanged from 09/23 CT scan.. There are no new confluent infiltrates nor pleural effusions. There are no new dell nous pulmonary nodules in either lung field. No new findings in the trachea and mainstem bronchi. MEDIASTINUM: No new hilar nor mediastinal adenopathy. CARDIAC: Heart size is normal. There is no pericardial effusion.Caliber of the thoracic aorta is wit hin normal limits. OTHER: OSSEOUS: No significant osseous lesions.No fractures.. IMPRESSION: 1. Stable with minimal if any significant change compared to prior CT scan of 10/04/2021. No new pul monary nodules, infiltrates, pleural effusions, nor new intrathoracic adenopathy. 2. The amount of pulmonary fibrosis appears stable 3. Lung RADS Cat 1 - Negative: No nodules and definitely benign nodules Lung-RADS 1.0 CATEGORIES: Category 0 - Prior chest CT exam(s) being located for comparison. Category 1 - Annual screening in 12 months. No nodules or definitely benign nodules. Category 2 - Annual screening in 12 months. Benign appearance. Nodules with low likelihood of becomin g active cancer. Category 3 - 6-month follow-up. Probably benign. Short-term follow-up suggested. Nodules with low lik elihood of becoming active cancer. Category 4A - 3-month follow-up and CT/PET if >8 mm in size. Suspicious finding. Findings which requi re additional testing. Category 4B - Findings which require additional testing and tissue sampling. Category 4X - Category 3 or 4 nodules with additional features or imaging findings that increases the suspicion of malignancy. Modifier S- Potentially clinically significant findings (non lung cancer) RADIATION DOSE DELIVERED: 74.97mGy.cm Total DLP DATA REPOSITORY: All CT scans at this facility are submitted to the National Radiology Data Registry (NRDR) Dose Index Registry (DIR) with the [employer] ([employer]). RADIATION OPTIMIZATION: All CT scans at this facility use at least one of these dose optimization te chniques: automated exposure control; mA and/or kV adjustment per patient size (includes targeted exa ms where dose is matched to clinical indication); or iterative reconstruction.
== END ==
PROVIDERS: PCP Family Medicine; Visit Provider Family Medicine
DX: F17.210 Nicotine dependence, cigarettes, uncomplicated (principal); Z12.2 Encounter for screening for malignant neoplasm of respiratory organs
CPT/HCPCS: 71271

== ENCOUNTER 2023-09-11 04:36 | Outpatient (CLI) | payer MEDICARE, SELFPAY ==
[2023-09-11 18:10] LABS: PSA, Diagnostic 88.2 ng/mL (<=6.5)
== END 2023-09-11 04:37 | disposition home or self-care (01) ==
LOC: LBO 04:37
PROVIDERS: PCP Family Medicine; Visit Provider Nurse Practitioner Gerontology
DX: R97.20 Elevated prostate specific antigen [PSA] (principal)
CPT/HCPCS: 36415; 84153

== ENCOUNTER → 2023-09-13 14:05 | Outpatient (BNVA) | payer MEDICARE, SELFPAY | PROVIDERS: PCP Family Medicine; Referring Provider Family Medicine; Visit Provider Physician Assistant Surgical | DX: J84.9 Interstitial pulmonary disease, unspecified (principal); F17.210 Nicotine dependence, cigarettes, uncomplicated | CPT/HCPCS: 99215 ==

== ENCOUNTER → 2023-09-18 09:46 | Outpatient (BNVA) | payer MEDICARE, SELFPAY | PROVIDERS: PCP Family Medicine; Visit Provider Nurse Practitioner Gerontology | DX: N40.1 Benign prostatic hyperplasia with lower urinary tract symptoms (principal); R97.20 Elevated prostate specific antigen [PSA] | CPT/HCPCS: 51798; 99214 ==

== ENCOUNTER 2023-09-28 02:38 | Outpatient (CLI) | payer MEDICARE, SELFPAY ==
[2023-09-28] MEDS: Inhaler, Assist Device 1 EACH MC (09:16)
[2023-09-28] MEDS: Levalbuterol HFA 15 GM INH 4 PUFF IH (09:16)
--- NOTE | 2023-09-28 10:22 | W.PFT ---
Date of service: 09/28/23 Time of Service: 07:57 Pulmonary Function Test Result Indications: ILD Interpretation Spirometry: There is no airflow limitation. No bronchodilator response. Lung Volumes: Normal lung volumes Diffusion Capacity: Normal diffusion Airway Pressure: Normal airways resistance Impression Normal pulmonary function testing Clinical Correlation therefore is recommended.
== END 2023-09-28 02:39 | disposition home or self-care (01) ==
LOC: RT 02:39
PROVIDERS: PCP Family Medicine; Visit Provider Physician Assistant Surgical
DX: J84.89 Other specified interstitial pulmonary diseases (principal)
CPT/HCPCS: 94060; 94726; 94729

== ENCOUNTER → 2023-10-16 15:19 | Outpatient (BNVA) | payer MEDICARE, SELFPAY | PROVIDERS: PCP Family Medicine; Referring Provider Family Medicine; Visit Provider Student in an Organized Health Care Education/Training Program | DX: J84.9 Interstitial pulmonary disease, unspecified (principal) | CPT/HCPCS: 99214 ==

== ENCOUNTER 2024-02-12 15:16 | Outpatient (REF) | payer MEDICARE, SELFPAY ==
[2024-02-12 16:47] LABS: HCT 42.7 % (40.0-50.0); HGB 14.8 g/dL (13.5-17.5); MCH 34.3 pg (27.0-33.0); MCHC 34.7 % (32.0-36.0); MCV 99 fL (80-95); MPV 9.9 fL (8.0-11.0); Platelet Count 304 10^3/uL (130-400); RBC 4.31 10^6/uL (4.36-5.78); RDW 12.1 % (11.8-14.1); RDW-SD 44.4 fL; WBC 9.66 10^3/uL (4.4-10.8)
[2024-02-12 17:54] LABS: ALT 25 U/L (16-63); AST 24 U/L (15-37); Alkaline Phosphatase 55 U/L (46-116); Anion Gap 10.9 mmol/L (3-11); BUN 26 mg/dL (7-18); Bilirubin, Total 0.61 mg/dL (0.2-1.0); CO2 26.1 mmol/L (21.0-32.0); CREATININE 1.1 mg/dL (0.70-1.30); Calculated LDL 94 mg/dL (<100); Chloride 100 mmol/L (98-107); Cholesterol 209 mg/dL (<200); Estimated GFR 68.71 (mL/min/1.73m2); Glucose 97 mg/dL (74-106); HDL Cholesterol 99 mg/dL (40-60); Potassium 3.8 mmol/L (3.5-5.1); Sodium 137 mmol/L (136-145); Total Protein 7.7 g/dL (6.4-8.2); Triglyceride 80 mg/dL (<150)
[2024-02-12 18:15] LABS: Calcium 10.5 mg/dL (8.5-10.1)
[2024-02-12 22:35] LABS: PSA, Screening 86.7 ng/mL (<=6.5)
== END 2024-02-12 15:17 | disposition home or self-care (01) ==
LOC: NCHCN 15:16
PROVIDERS: PCP Family Medicine; Visit Provider Family Medicine
DX: I10 Essential (primary) hypertension (principal); R97.20 Elevated prostate specific antigen [PSA]; Z12.5 Encounter for screening for malignant neoplasm of prostate
CPT/HCPCS: 80053; 80061; 84153; 85027

== ENCOUNTER → 2024-03-13 14:57 | Outpatient (BNVA) | payer MEDICARE, SELFPAY | PROVIDERS: PCP Family Medicine; Visit Provider Nurse Practitioner Gerontology | DX: N40.0 Benign prostatic hyperplasia without lower urinary tract symptoms (principal); R97.20 Elevated prostate specific antigen [PSA] | CPT/HCPCS: 99214 ==

== ENCOUNTER 2024-06-17 12:18 | Outpatient (REF) | payer MEDICARE, SELFPAY ==
[2024-06-17 15:54] LABS: AST 24 U/L (15-37); Calcium 10.3 mg/dL (8.5-10.1); Calculated LDL 75 mg/dL (<100); Cholesterol 189 mg/dL (<200); HDL Cholesterol 105 mg/dL (40-60); Triglyceride 48 mg/dL (<150)
[2024-06-17 16:34] LABS: Creatine Kinase 62 U/L (39-308)
== END 2024-06-17 12:19 | disposition home or self-care (01) ==
LOC: NCHCN 12:18
PROVIDERS: PCP Family Medicine; Visit Provider Family Medicine
DX: E78.5 Hyperlipidemia, unspecified (principal)
CPT/HCPCS: 80061; 82550; 82310; 84450

== ENCOUNTER 2024-09-03 04:22 | Outpatient (CLI) | payer MEDICARE, SELFPAY ==
[2024-09-03 15:55] LABS: ALT 28 U/L (16-63); AST 20 U/L (15-37); Albumin 3.7 g/dL (3.4-5.0); Alkaline Phosphatase 60 U/L (46-116); Anion Gap 8.5 mmol/L (3-11); BUN 26 mg/dL (7-18); Bilirubin, Total 0.4 mg/dL (0.2-1.0); CO2 26.5 mmol/L (21.0-32.0); CREATININE 1.2 mg/dL (0.70-1.30); Calcium 10.3 mg/dL (8.5-10.1); Chloride 103 mmol/L (98-107); Glucose 105 mg/dL (74-106); Potassium 3.7 mmol/L (3.5-5.1); Sodium 138 mmol/L (136-145); Total Protein 7.5 g/dL (6.4-8.2)
[2024-09-03 22:59] LABS: PSA, Diagnostic 91.5 ng/mL (<=6.5)
== END 2024-09-03 04:23 | disposition home or self-care (01) ==
PROVIDERS: PCP Family Medicine; Visit Provider Nurse Practitioner Gerontology
DX: R97.20 Elevated prostate specific antigen [PSA] (principal); N40.0 Benign prostatic hyperplasia without lower urinary tract symptoms
CPT/HCPCS: 36415; 80053; 84153

== ENCOUNTER → 2024-09-11 14:19 | Outpatient (BNVA) | payer MEDICARE, SELFPAY | PROVIDERS: PCP Family Medicine; Visit Provider Nurse Practitioner Gerontology | DX: R97.20 Elevated prostate specific antigen [PSA] (principal) | CPT/HCPCS: 99214 ==

== ENCOUNTER 2024-09-19 00:46 | Outpatient (CLI) | payer MEDICARE, SELFPAY ==
--- NOTE | 2024-09-19 15:28 | DI.CTLCSR_ITS ---
Exam(s) CT CHEST LUNG CANCER SCREEN EXAM: CT CHEST LUNG CANCER SCREEN CLINICAL HISTORY: Moderate smoker(20 or less per day),F17.210-nicotine dependence, cigarettes TECHNIQUE: Imaging Protocol: Axial computed tomography images with coronal and sagittal reformatted images were created and reviewed. Low dose screening protocol. COMPARISON: CT CT CHEST LUNG CANCER SCREEN from 08/14/2023 FINDINGS: Tracheobronchial tree: No bronchiectasis or mucus plugging. Mediastinum and Cait: No dominant adenopathy or fluid collection. Pulmonary parenchyma: No consolidation or dominant measurable mass. Mild paraseptal centrilobular emp hysematous changes. [id number] interstitial changes, greater peripherally. Lung Nodules: Tiny calcified granuloma left upper lobe. Pleura: No effusion. No pneumothorax. Heart: The heart is not dilated. Moderate coronary artery calcifications are seen. No pericardial eff usion. Aorta: Thoracic aorta non-dilated. Upper abdomen: Unremarkable. Bones: Narrowing of the anterior disc spaces in the mid to lower thoracic spine with prominent endpla te osteophytes. Soft Tissues: Unremarkable. IMPRESSION: No suspicious pulmonary nodules. Lung RADS Cat 1 - Negative: No nodules and definitely benign nodules Lung-RADS 1.0 CATEGORIES: Category 0 - Prior chest CT exam(s) being located for comparison. Category 1 - Annual screening in 12 months. No nodules or definitely benign nodules. Category 2 - Annual screening in 12 months. Benign appearance. Nodules with low likelihood of becomin g active cancer. Category 3 - 6-month follow-up. Probably benign. Short-term follow-up suggested. Nodules with low lik elihood of becoming active cancer. Category 4A - 3-month follow-up and CT/PET if >8 mm in size. Suspicious finding. Findings which requi re additional testing. Category 4B - Findings which require additional testing and tissue sampling. Category 4X - Category 3 or 4 nodules with additional features or imaging findings that increases the suspicion of malignancy. Modifier S- Potentially clinically significant findings (non lung cancer) RADIATION DOSE DELIVERED: !Error Total DLP DATA REPOSITORY: All CT scans at this facility are submitted to the National Radiology Data Registry (NRDR) Dose Index Registry (DIR) with the [employer] (ACR). RADIATION OPTIMIZATION: All CT scans at this facility use at least one of these dose optimization te chniques: automated exposure control; mA and/or kV adjustment per patient size (includes targeted exa ms where dose is matched to clinical indication); or iterative reconstruction.
== END 2024-09-19 01:06 ==
LOC: DI 00:46
PROVIDERS: PCP Family Medicine; Visit Provider Family Medicine
DX: F17.210 Nicotine dependence, cigarettes, uncomplicated (principal); Z12.2 Encounter for screening for malignant neoplasm of respiratory organs
CPT/HCPCS: 71271

== ENCOUNTER 2025-03-12 04:22 | Outpatient (CLI) | payer MEDICARE, SELFPAY ==
[2025-03-12 17:38] LABS: PSA, Diagnostic 89.9 ng/mL (<=6.5)
== END 2025-03-12 04:23 | disposition home or self-care (01) ==
LOC: LBO 04:22
PROVIDERS: PCP Family Medicine; Visit Provider Nurse Practitioner Gerontology
DX: R97.20 Elevated prostate specific antigen [PSA] (principal)
CPT/HCPCS: 36415; 84153

== ENCOUNTER → 2025-03-19 14:58 | Outpatient (BNVA) | payer MEDICARE, SELFPAY | PROVIDERS: PCP Family Medicine; Referring Provider Family Medicine; Visit Provider Nurse Practitioner Gerontology | DX: R97.20 Elevated prostate specific antigen [PSA] (principal) | CPT/HCPCS: 99214 ==